=== PATIENT | female | born 1950 | race Caucasian/White ===

== ENCOUNTER 2018-10-15 07:57 | Observation (INO) ==
--- NOTE | 2018-10-15 08:24 | EKG Report ---
Test Performed on : 10/15/2018 08:06:52 AM Test Reason : ER Blood Pressure : / mmHG Vent. Rate : 082 BPM Atrial Rate : 082 BPM P-R Int : 134 ms QRS Dur : 096 ms QT Int : 368 ms P-R-T Axes : 030 002 024 degrees QTc Int : 429 ms Normal sinus rhythm. Septal infarct (cited on or before 11-MAR-2018) Cannot rule out Inferior infarct (cited on or before 11-MAR-2018) Abnormal ECG When compared with ECG of 11-MAR-2018 12:38, Nonspecific T wave abnormality now evident in Lateral leads Unconfirmed Result
--- NOTE | 2018-10-15 08:42 | PROVIDER DOCUMENTATION ---
HPI-Chest Pain - General Chief Complaint: Chest Pain Stated Complaint: CHEST PAINS Time Seen by Provider: 10/15/18 08:12 Source: patient Allergies/Adverse Reactions: Patient Allergies Allergy/AdvReac Type Severity Reaction Status Date / Time codeine Allergy NAUSEA Verified 10/15/18 08:14 Penicillins Allergy RASH Verified 10/15/18 08:14 Home Medications: Home Medication List Medication Instructions Recorded Confirmed Last Taken Type Aspirin 81 mg PO DAILY 02/04/14 03/12/18 03/11/18 09:00 History Lisinopril 10 mg PO DAILY 02/04/14 03/11/18 03/11/18 09:00 History Metformin [Glucophage] 1,000 mg PO BID CC 02/04/14 03/11/18 03/11/18 21:00 History Metoprolol Tartrate 25 mg PO BID 02/04/14 03/12/18 03/12/18 08:00 History Omeprazole 40 mg PO DAILY 02/04/14 03/11/18 03/11/18 09:00 History ATORVAstatin [Lipitor] 40 mg PO DAILY 02/28/17 03/11/18 03/11/18 09:00 History Biotin 1 cap PO DAILY 02/28/17 03/11/18 03/11/18 09:00 History Gabapentin 300 mg PO TID 02/28/17 03/11/18 03/11/18 21:00 History Trazodone [Desyrel] 50 mg PO DAILY 02/28/17 03/12/18 03/11/18 21:00 History Oxycodone HCl/Acetaminophen 1 ea PO Q6H PRN PRN #12 tab 02/01/18 03/12/18 03/12/18 08:00 Rx [Percocet 5-325 mg Tablet] Insulin Aspart Prot/Insuln Asp 40 units SUBQ BID 02/08/18 03/12/18 03/11/18 09:00 History [Novolog Mix 70-30 Flexpen Syrn] Doxepin [Sinequan] 50 mg PO DAILY 03/11/18 03/11/18 03/11/18 09:00 History Ibuprofen 800 mg PO PRN PRN 03/11/18 03/12/18 03/09/18 History Methocarbamol 500 mg PO TID 03/11/18 03/11/18 03/11/18 21:00 History Mv,Ca,Min/Iron Fum/FA/Lyco/Lut 1 each PO DAILY 03/11/18 03/11/18 03/11/18 09:00 History [Complete Multi Tablet] Ondansetron HCl [Zofran] 4 mg PO PRN PRN 03/11/18 03/12/18 2 Weeks Ago History ~02/26/18 - History of Present Illness-CP Nature of Presenting Problem: patient is 68 y/o female with history of HTN, DM, Hyperlipidemia presented with chest pain in mid chest and right sided chest pain, no other symptoms, patient said pain as discomfort. patient denied radiation, palpitation or shortness of breath. Location: reports: substernal Chest Pain Radiation: reports: no radiation Quality of Pain: reports: dull Severity in ED: moderate Onset/Duration: gradual Timing: still present, improving Context/Activities at Onset: reports: none Modifying Factors: improves with: nothing Associated Symptoms: denies: abdominal pain, diaphoresis, fatigue, fever/chills, headache, shortness of breath Nitro Today/Relief: no nitro taken today Aspirin Treatment Today: no aspirin today Prior Chest Pain/Cardiac Workup: reports: no prior cardiac workup Similar Symptoms Previously?: No Recently Seen Here or By Another Healthcare Provider: No Review of Systems - Adult - REVIEW OF SYSTEMS - ADULT Constitutional: reports: no symptoms reported. denies: fever, fatique Eyes: reports: no symptoms reported Ears, Nose, Mouth & Throat: reports: no symptoms reported Cardiovascular: reports: no symptoms reported Respiratory: reports: no symptoms reported Gastrointestinal: reports: no symptoms reported Genitourinary: reports: no symptoms reported. denies: dysuria, discharge Musculoskeletal: reports: no symptoms reported Integumentary: reports: no symptoms reported Neurological: reports: no symptoms reported Psychiatric: reports: no symptoms reported Endocrine: reports: no symptoms reported Hematologic/Lymphatic: reports: no symptoms reported Allergic/Immunologic: reports: no symptoms reported Past History - Adult - PAST MEDICAL HISTORY-ADULT Review of Records: reports: Nursing Assessment Review Major Childhood Illnesses: reports: denies history Cardiovascular: reports: HTN, hyperlipidemia Respiratory: reports: denies history Gastrointestinal: reports: GERD Obstetrical/Gynecological: reports: denies history Genitourinary: reports: denies history Musculoskeletal: reports: denies history Neurological: reports: TIA Endocrine/Immune: reports: Diabetes Other Conditions: reports: other cancer (Non-Hodgkin's Lymphoma) - PRIOR SURGERIES/PROCEDURES Surgical/Procedure History: reports: appendectomy, BTL, - PRIOR HOSPITALIZATIONS Prior Hospitalizations: reports: for other non-related - IMMUNIZATION STATUS Childhood Immunizations: See Nurse Assessment Flu Vaccine: See Nurse Assessment - FAMILY HISTORY Family History: reviewed, not pertinent Physical Exam-General - PHYSICAL EXAM-ADULT Initial Vital Signs Reviewed: Yes - CONSTITUTIONAL General Appearance: appears well, alert, no apparent distress - EYES Eyes: PERRL/EOMI - HEAD, EARS, NOSE, MOUTH & THROAT HENMT: normocephalic/atraumatic - NECK Neck: non-tender - RESPIRATORY Respiratory: chest non-tender - CARDIOVASCULAR Cardiovascular: normal peripheral pulses, regular rate, rhythm, no edema, no gallop - GASTROINTESTINAL (ABDOMEN) Abdominal Exam: normal bowel sounds, non tender, soft - LYMPHATIC Lymphatic: no adenopathy - MUSCULOSKELETAL Back Exam: normal inspection Extremity: normal range of motion, non-tender - SKIN Integumentary: normal color, normal turgor, warm/dry - NEUROLOGIC Neurologic: sales representative groceries II-XII nml as tested, grossly normal, no motor/sensory deficits - PSYCHIATRIC Psych/Mental Status: normal mood/affect - HEART Score HEART Score: History: Slightly Suspicious HEART Score: ECG: Non-Specific Repolarization Disturbance/LBBB/PM HEART Score: Age: > or = 65 Years HEART Score: Risk Factors for Atherosclerotic Disease: > or = 3 Risk Factors or History of Atherosclerotic Disease HEART Score: Troponin: < or = Normal Limit Total HEART Score:: 5 Progress - PLAN OF CARE/RESULTS Progress/Plan/Lab Results: Vital Signs - 8 hr 10/15/18 07:58 10/15/18 10:13 10/15/18 11:20 Temperature 97.9 F Pulse Rate 90 78 71 Respiratory Rate 20 16 12 Blood Pressure 181/081 196/75 196/75 O2 Sat by Pulse Oximetry 97 97 98 Laboratory Results - last 24 hr 10/15/18 10/15/18 10/15/18 08:30 08:30 08:30 WBC 12.06 H RBC 4.41 Hgb 13.1 Hct 37.4 MCV 84.8 MCH 29.7 MCHC 35.0 RDW Std Deviation 12.9 Plt Count 215 MPV 9.4 Immature Gran % (Auto) 0.2 Neut % (Auto) 73.2 Lymph % (Auto) 18.0 L [place] % (Auto) 6.2 Eos % (Auto) 1.8 Baso % (Auto) 0.6 Immature Gran # (Auto) 0.03 Neut # (Auto) 8.82 H Lymph # (Auto) 2.17 [place] # (Auto) 0.75 H Eos # (Auto) 0.22 Baso # (Auto) 0.07 PT INR PTT (Actin FS) D-Dimer, Quantitative Sodium 137 Potassium 3.9 Chloride 99 Carbon Dioxide 26 Anion Gap 12 BUN 13 Creatinine 0.6 Estimated GFR/1.73 m2 > 60 BUN/Creatinine Ratio 22 Glucose 340 H Calculated Osmolality 287 Calcium 8.8 Total Bilirubin 1.30 H AST 103 H ALT 51 H Alkaline Phosphatase 125 H Creatine Kinase 93 Troponin T Total Protein 6.5 Albumin 3.8 Globulin 3.0 Albumin/Globulin Ratio 1.0 10/15/18 10/15/18 10/15/18 08:30 08:30 08:30 WBC RBC Hgb Hct MCV MCH MCHC RDW Std Deviation Plt Count MPV Immature Gran % (Auto) Neut % (Auto) Lymph % (Auto) [place] % (Auto) Eos % (Auto) Baso % (Auto) Immature Gran # (Auto) Neut # (Auto) Lymph # (Auto) [place] # (Auto) Eos # (Auto) Baso # (Auto) PT 12.4 INR 0.88 PTT (Actin FS) 24.7 D-Dimer, Quantitative 0.65 H Sodium Potassium Chloride Carbon Dioxide Anion Gap BUN Creatinine Estimated GFR/1.73 m2 BUN/Creatinine Ratio Glucose Calculated Osmolality Calcium Total Bilirubin AST ALT Alkaline Phosphatase Creatine Kinase Troponin T < 0.010 Total Protein Albumin Globulin Albumin/Globulin Ratio Orders Category Date Time Status Cardiac Monitoring DIRECTED Care 10/15/18 08:15 Active Nursing- Obtain EKG ONCE Care 10/15/18 08:15 Active Saline Loc NOW Care 10/15/18 08:39 Active CTA [CT ANGIOGRAM THORAX] [CT] Stat Exams 10/15/18 09:49 Completed cxr [CHEST-2 VIEWS] [RAD] Stat Exams 10/15/18 08:49 Completed CBC WITH DIFF [HEME] Stat Lab 10/15/18 08:30 Completed CK PROFILE [SP CHEM] Stat Lab 10/15/18 08:30 Completed CMP [COMPREHENSIVE METABOLIC PANEL] [CHEM] Stat Lab 10/15/18 08:30 Completed D-DIMER [COAG] Stat Lab 10/15/18 08:30 Completed PROTIME WITH INR [COAG] Stat Lab 10/15/18 08:30 Completed PTT [COAG] Stat Lab 10/15/18 08:30 Completed TROPONIN T Stat Lab 10/15/18 08:30 Completed Aspirin Med 10/15/18 11:46 Discontinued 325 mg PO NOW ONE Labetalol Med 10/15/18 11:45 Discontinued 10 mg IV NOW ONE Nitroglycerin Med 10/15/18 11:46 Discontinued 1 inch TOP NOW ONE EKG [EKG] Routine Ther 10/15/18 Draft Result Diagrams: 10/15/18 08:30 10/15/18 08:30 - CONSULTS/PCP/HOSPITALIST Notification #1 *Consult/PCP/Hospitalist*: Dr Seals Time Discussed: 11:50 Consult Disposition: Will see in ED Departure - Departure Date of Disposition Decision: 10/15/18 Time of Disposition Decision: 11:48 DIAGNOSIS: Chest pain Disposition: ADMITTED INPATIENT 09 Certified Medical Emergency: Emergent Condition: Good Referrals and Follow-Ups: Cindi Kiran CRNP [Primary Care Provider] - - Critical Care Note This patient required my direct & personal management of CC.: No Attestation - Physician/ TANK Attestation Patient care was provided by Advanced Practice Provider:: No The physician spent face to face time with patient:: Yes Advanced Practice Provider documentation review:: Supervising physician onsite and consulted in the evaluation and care of this patient. The physician did have a face to face encounter with the patient.
[2018-10-15 09:10] LABS: BASO# 0.07 X1000 (0.0-0.2); BASO% 0.6 % (0.0-0.8); EOS# 0.22 X1000 (0.0-0.7); EOS% 1.8 % (0.0-10.0); HEMATOCRIT 37.4 % (37.0-47.0); HEMOGLOBIN 13.1 g/dL (12.0-16.0); IMM GRAN# 0.03 X1000 (0.0-0.04); IMM GRAN% 0.2 % (0.0-0.5); LYMPH# 2.17 X1000 (1.2-3.4); MCH 29.7 PG (27-31); MCV 84.8 FL (81-99); MONO# 0.75 X1000 (0.11-0.59); MONO% 6.2 % (1.7-9.3); MPV 9.4 FL (7.4-10.4); NEUT# 8.82 X1000 (1.4-6.5); NEUT% 73.2 % (42.2-75.2); PLT 215 X1000 (130-400); RBC 4.41 XMIL (4.2-5.4); RDW 12.9 % (11.5-14.5); WBC 12.06 X1000 (4.8-10.8)
[2018-10-15 09:21] LABS: AGAP 12; ALBUMIN 3.8 g/dL (3.5-5.0); ALKALINE PHOSPHATASE 125 U/L (32-104); BUN 13 mg/dL (8-22); CALCIUM 8.8 mg/dL (8.8-10.2); CHLORIDE 99 mmol/L (98-107); COSMO 287; CREATININE 0.6 mg/dL (0.5-0.9); ESTIMATED GFR > 60; GLUCOSE 340 mg/dL (70-104); GOT 103 U/L (10-30); GPT 51 U/L (10-36); POTASSIUM 3.9 mmol/L (3.5-5.1); SODIUM 137 mmol/L (136-145); TCO2 26 mmol/L (25-35); TOTAL PROTEIN 6.5 g/dL (6.3-8.3)
[2018-10-15 09:23] LABS: INR 0.88; PROTIME 12.4 Seconds (11.0-16.0)
[2018-10-15 09:24] LABS: PTT 24.7 Seconds (22.3-41.8)
--- NOTE | 2018-10-15 09:55 | Diag Imaging Result Doc PS360 ---
EXAM: CHEST-2 VIEWS - 10/15/2018 HISTORY: cp TECHNIQUE: Chest two views COMPARISON: 02/14/2018 portable chest FINDINGS: Heart size appears upper normal. There is some tortuosity of the thoracic aorta similar to prior. Inspiration is mildly shallow. There is mild linear atelectasis at the lateral left lower lung. The lungs otherwise appear clear. There is no pleural effusion or pneumothorax identified. There is thoracic spondylosis noted. IMPRESSION: Mildly shallow inspiration, with mild left lower lung linear atelectasis. No other evidence of acute disease. Electronically signed by Clinton Dunham 10/15/2018 9:53 AM
--- NOTE | 2018-10-15 11:00 | Diag Imaging Result Doc PS360 ---
EXAM: CT ANGIOGRAM THORAX - 10/15/2018 HISTORY: chest pain, elevated dimer TECHNIQUE: CT angiogram thorax with intravenous contrast. Axial, coronal, and 3-D MIP images are obtained. COMPARISON: None. FINDINGS: There is no evidence of thoracic aortic aneurysm. There is no evidence of thoracic aortic dissection. The pulmonary arteries are relatively well opacified. There are no filling defects identified in the pulmonary arteries. The lungs appear essentially clear. There is no consolidation, pleural effusion, or pneumothorax identified. IMPRESSION: No evidence of thoracic aortic dissection. No indication of pulmonary embolism. No evidence of pneumonia. No pneumothorax. Electronically signed by Clinton Dunham 10/15/2018 10:57 AM
[2018-10-15] MEDS ORDERED: LABETALOL IV ONE (11:45)
[2018-10-15] MEDS ORDERED: ASPIRIN PO ONE (11:46)
[2018-10-15] MEDS ORDERED: NITROGLYCERIN TOP ONE (11:46)
--- NOTE | 2018-10-15 11:48 | ED EKG INTERP ---
This chart was entered by Silvia Dahl Scribe, acting as scribe for Betty Otoole MD. EKG Interpretation - EKG Time of EKG reading by physician:: 08:06 EKG Read and Signed by:: Betty Otoole EKG Interpretation (*Must complete 3 of following elements*): Abnormal (cannot rule out inferior infarct, age undetermined) Rate: 82 Rhythm: normal sinus rhythm MD Interval: normal Comments: septal infarct, age undetermined Attestation - Physician/ TANK Attestation The physician spent face to face time with patient:: Yes Advanced Practice Provider documentation review:: Supervising physician onsite and consulted in the evaluation and care of this patient. The physician did have a face to face encounter with the patient. This chart was documented by the indicated scribe, (Silvia Dahl Scribe) and accurately reflects the services I performed and decisions made by me, Betty Otoole MD, as attested by the provider's signature.
[2018-10-15] MEDS ORDERED: ZOFRAN IV ONE (12:03)
[2018-10-15] MEDS ORDERED: LABETALOL IV PRN (12:49)
[2018-10-15] MEDS ORDERED: TYLENOL PO PRN (12:49)
[2018-10-15] MEDS ORDERED: FLU VACCINE IM ONE (13:59)
[2018-10-15] MEDS ORDERED: PNEUMOVAX 23 IM ONE (13:59)
[2018-10-15 15:01] LABS: HEMOGLOBIN A1C 9.2 % (4.8-6.0)
--- NOTE | 2018-10-15 15:08 | HISTORY AND PHYSICAL ---
PRIMARY CARE PHYSICIAN: Cindi Kiran. CHIEF COMPLAINT: Chest pain. HISTORY OF PRESENTING ILLNESS: This is a 68-year-old, female who presented to [facility] ER with complaints of chest pain. States that she ate ninja [place]ian food last night for supper, went to bed. At around 7 p.m., woke up with a charley horse in her right calf that moved up her right side into her chest that felt like pressure. Stated, "I felt like my chest was going to explode." States that the pain is a 5/10 on the pain scale. Nothing makes the pain worse and nothing makes the pain better. It has not improved since she arrived to the emergency room. It is staying constant and does not radiate anywhere. She states that she just feels "tight and full". She is also noted to have some tenderness to palpation to her right upper quadrant. Her workup in the emergency room showed a blood pressure of 181/81. Her white blood cell count was 12.06. She did have a mild elevation in her D- dimer at 0.65. Chest and thorax CTA showed no indication of a pulmonary embolism. No evidence of a thoracic aortic dissection. She did have some elevation in her LFTs with a total bilirubin of 1.30, AST 103, ALT 51, alkaline phosphatase 125. She had a negative cardiac enzyme on her first set. She is being admitted for further evaluation and treatment. PAST MEDICAL HISTORY: Hypertension, diabetes type 2, hyperlipidemia, neuropathy, and GERD. PAST SURGICAL HISTORY: Appendectomy, bilateral tubal ligation, a section, and a skin graft to her foot. FAMILY HISTORY: Diabetes and osteoarthritis in her father. Her father and mother had heart disease and hypertension. SOCIAL HISTORY: She currently lives with family. Denies any tobacco, alcohol, or illicit drug use. ALLERGIES: To codeine and penicillin. HOME MEDICATIONS: She takes Lipitor 40 mg p.o. at bedtime, doxepin 50 mg p.o. at bedtime, gabapentin 300 mg p.o. t.i.d., ibuprofen 800 mg p.o. b.i.d., lisinopril 10 mg p.o. daily, metformin 500 mg p.o. b.i.d. will be held, metoprolol 12.5 mg p.o. b.i.d., omeprazole 40 mg p.o. daily, trazodone 50 mg 1/2 tablet p.o. at bedtime, aspirin 81 mg p.o. daily, biotin 5000 mcg sublingually daily, Novolin 70/30 with 20 units subcutaneous b.i.d., methocarbamol 500 mg 2 tablets daily and 1 tablet at bedtime. LABORATORY DATA: Showed a white blood cell count of 12.06, hemoglobin 13.1, hematocrit 37.4, platelets 215,000. PT and INR of 12.4 and 0.88. D-dimer of 0.65. Sodium 137, potassium 3.9, chloride 99, CO2 26, BUN of 13, creatinine 0.6, glucose 340. Total bilirubin 1.30, AST 103, ALT 51, alkaline phosphatase 125. Cardiac enzymes x1 set was negative. An EKG showed normal sinus rhythm at 82 with a nonspecific T-wave abnormality in lateral leads. Chest x- ray, mildly shallow inspiration with mild left lung lower linear atelectasis. No other evidence of acute disease. Chest and thorax CTA showed no evidence of thoracic aortic dissection. No indication of pulmonary embolism. No evidence of pneumonia and no pneumothorax. REVIEW OF SYSTEMS: She denied any fever, chills, blurred vision, dizziness. She is positive for chest pain, right upper quadrant tenderness. Denied any nausea, vomiting, constipation, diarrhea, burning or hurting with urination. PHYSICAL EXAMINATION: VITAL SIGNS: On arrival, she had a temperature of 97.9 degrees, pulse 90, respirations 20, blood pressure 181/81, saturating 97% on room air. GENERAL: This is a 68-year-old, female who is sitting on the side of the bed and answers questions appropriately. HEENT: Normocephalic, atraumatic. Normal ENT inspection. Oropharynx and nares are clear. Eyes: Pupils are equal, round, and reactive to light and accommodation. Extraocular movements are intact. NECK: Normal inspection. Normal range of motion. LUNGS: Clear to auscultation bilaterally with equal lung expansion and chest wall movement. HEART: With regular rate and rhythm. No murmurs, rubs, or gallops. ABDOMEN: Soft. There is some tenderness to palpation to the right upper quadrant. Bowel sounds are present x4 quadrants. MUSCULOSKELETAL: She has 5/5 strength x4 extremities. NEUROLOGICAL: The cranial nerves 2-12 appear grossly intact. ASSESSMENT: 1. Chest pain. 2. Elevated liver function tests. 3. Hypertension. 4. Diabetes type 2 with hyperglycemia, uncontrolled. 5. Elevated D-dimer. PLAN: She has been admitted to the medical unit. Placed on O2 per protocol, telemetry, diabetic diet. We will check a bilateral lower extremity venous Doppler. We are going to check a hemoglobin A1c, a urinalysis, and serial cardiac enzymes x3 sets. An ultrasound of the abdomen complete has been ordered. We will do a myocardial perfusion test in the a.m. and be n.p.o. after midnight. Continue home medications as previously identified. Give labetalol 20 mg IV q.4 hours p.r.n. for a systolic blood pressure greater than 180 and diastolic greater than 100, morphine 2 mg IV q.2 hours p.r.n. pain, Zofran 4 mg IV q.4 hours p.r.n. Further orders after seen by attending. Dictated by BESSIE Zimmerman for Kostas Seals MD cc: BESSIE Zimmerman MD Amanda K. Anderson, CRNP Pt examined, pt has risk factors for heart disease, dm2, htn, xol, and uses daily aspirin, TIMI3 score is around # and HEART score of 5; plan to observe start stress test and follow, exam is benign, seen in conjunction with BESSIE HERNANDEZ
[2018-10-15] MEDS ORDERED: KLONOPIN PO PRN (16:24)
[2018-10-15] MEDS ORDERED: NEURONTIN PO SCH (17:00)
--- NOTE | 2018-10-15 17:37 | Extremity Venous Study ---
EXAM: Venous U/S Bilateral Legs INDICATION: elevated ddimer TECHNIQUE: COMPARISON: None. FINDINGS: There are no filling defects and there is normal Doppler flow, compressibility, and augmentation involving the deep venous systems of the right and left lower extremities. Both great saphenous veins also appear to be patent. IMPRESSION: No sonographic evidence of deep venous thrombosis. Electronically signed by Guanako Rausch 10/15/2018 5:35 PM
[2018-10-15] MEDS: NEURONTIN PO SCH (20:22)
[2018-10-15] MEDS: LOPRESSOR PO SCH (20:23)
[2018-10-15] MEDS: MOTRIN PO SCH (20:24)
[2018-10-15] MEDS ORDERED: DESYREL PO SCH (21:00)
[2018-10-15] MEDS ORDERED: ROBAXIN PO SCH (21:00)
[2018-10-15] MEDS ORDERED: LIPITOR PO SCH (21:00)
[2018-10-15] MEDS ORDERED: SINEQUAN PO SCH (21:00)
[2018-10-15] MEDS: HUMULIN 70/30 (PARKWAY) SUBQ SCH (21:50)
[2018-10-15 22:22] LABS: BILIRUBIN URINE NEGATIVE (NEGATIVE); BLOOD URINE TRACE (NEGATIVE); CLARITY CLEAR (CLEAR); COLOR YELLOW; KETONE URINE NEGATIVE (NEGATIVE); LEUKOCYTES URINE TRACE (NEGATIVE); NITRITE URINE NEGATIVE (NEGATIVE); PH URINE 6.5; PROTEIN URINE TRACE mg/dL (NEGATIVE); UROBILINOGEN URINE NORMAL
[2018-10-15 22:25] LABS: URINE SOURCE CLEAN CATCH
[2018-10-15 22:27] LABS: URINE BACTERIA NEGATIVE /HFP; URINE CRYSTAL CA OXALATE PRESENT /HPF; URINE EPITHELIAL CELLS >10 /HPF (<10); URINE RBC <10 /HPF (<10); URINE YEAST NONE SEEN /HPF
[2018-10-15] MEDS: MORPHINE IV PRN (23:44)
[2018-10-15] MEDS: ZOFRAN IV PRN (23:44)
[2018-10-16] MEDS ORDERED: PRILOSEC PO SCH (07:00)
[2018-10-16] MEDS: MORPHINE IV PRN (09:15)
[2018-10-16] MEDS: ZOFRAN IV PRN ×2 (09:16→11:57)
--- NOTE | 2018-10-16 09:21 | EKG Report ---
Test Performed on : 10/16/2018 05:23:45 AM Test Reason : CP Blood Pressure : / mmHG Vent. Rate : 073 BPM Atrial Rate : 073 BPM P-R Int : 148 ms QRS Dur : 086 ms QT Int : 388 ms P-R-T Axes : 028 006 039 degrees QTc Int : 427 ms Normal sinus rhythm. Septal infarct (cited on or before 11-MAR-2018) Abnormal ECG When compared with ECG of 15-OCT-2018 08:06, (Unconfirmed) Minimal criteria for Inferior infarct are no longer present Unconfirmed Result
[2018-10-16] MEDS ORDERED: AMINOPHYLLINE ONE (10:00)
[2018-10-16] MEDS ORDERED: LEXISCAN ONE (10:00)
[2018-10-16] MEDS: ASPIRIN EC PO SCH ×2 (10:08→13:19)
[2018-10-16] MEDS: PRINIVIL PO SCH ×2 (10:08→13:18)
[2018-10-16] MEDS: BIOTIN PO SCH ×2 (10:09→13:49)
[2018-10-16] MEDS: NEURONTIN PO SCH ×2 (10:09→13:20)
[2018-10-16] MEDS: HUMULIN 70/30 (PARKWAY) SUBQ SCH ×2 (10:09→13:16)
[2018-10-16] MEDS: ROBAXIN PO SCH ×2 (10:09→13:20)
[2018-10-16] MEDS: MOTRIN PO SCH ×2 (10:09→13:18)
[2018-10-16] MEDS: LOPRESSOR PO SCH ×2 (10:09→13:18)
--- NOTE | 2018-10-16 10:17 | Diag Imaging Result Doc PS360 ---
US ABDOMEN-COMPLETE - 10/16/2018 INDICATION: Elevated LFT, CP COMPARISON: None FINDINGS: The liver is extremely fatty. No liver masses. There are numerous small granular shadowing stones in the gallbladder. No gallbladder distention or inflammation. Common bile duct measures 6 mm. The pancreas, spleen, and both kidneys are normal. Spleen size is 10.4 x 10.3 x 4.6 cm. Aorta, IVC, and main portal vein are patent. IMPRESSION: Fatty liver. Numerous small granular gallstones in the gallbladder. Electronically signed by Aquilino Gray 10/16/2018 10:14 AM
--- NOTE | 2018-10-16 11:48 | GRADED EXERCISE REPORT ---
DATE: 10/16/2018 Ordered by BESSIE Zimmerman. Heart rate 81, blood pressure 177/96, at baseline. She has some T-wave inversion in 3 and AVF but really otherwise nonspecific. Lexiscan administered, 0.4 mg. She developed kind of just intense discomfort, headaches, nausea, just did not feel well. It persisted for several minutes. She has had the test done before, although I think apparently it was worse before. This time, it is a little better. No charles chest pain. No clear ST changes. Her peak blood pressure was 187/97, peak heart rate of 114. The test was felt to be clinically negative and electrically negative. Myocardial perfusion reported separately. cc: Kostas Seals MD
--- NOTE | 2018-10-16 15:22 | Diag Imaging Result Document ---
PROCEDURE NAME: MYOCARDIAL PERF SCAN, STR/REST - 10/16/2018 INDICATION FOR THE PROCEDURE: Chest pain. PROCEDURES PERFORMED: 1. Lexiscan stress. 2. One-day stress/rest myocardial perfusion imaging. PROCEDURE IN DETAIL: Ms. Villa was brought to the nuclear laboratory and had a resting study with injection of 13.6 mCi of technetium-99m sestamibi with the usual imaging protocol utilized. Subsequently she was brought back and had a Lexiscan stress, and at peak stress, was injected with 38.5 mCi of technetium-99m sestamibi with the usual imaging protocol utilized. FINDINGS: 1. Lexiscan stress results dictated separately by Dr. Seals. 2. No evidence of abnormal extracardiac uptake. 3. TID ratio 0.94. 4. Perfusion imaging demonstrates normal homogenous uptake of radiotracer throughout the myocardial segments. No evidence of ischemic defects. 5. Normal ejection fraction of 66%. End-diastolic volume 81. End systolic volume 27. Normal wall motion. cc: MD Laura Gaitan CRNP
--- NOTE | 2018-10-16 15:31 | PROGRESS NOTE ---
DATE: 10/16/2018 SUBJECTIVE: She is doing well, no more pains. OBJECTIVE: Vital Signs: Blood pressure is 137/49, heart rate 71, respiratory rate 16, temperature 97.9, satting 97% on room air. Cardiovascular: Regular rate and rhythm. Pulmonary: Bilateral breath sounds. Clear to auscultation. GI: Soft, nontender, nondistended. Bowel sounds are positive. LABORATORY DATA: Her cardiac enzymes are negative. Her sugars are not well controlled; they were in the 300s, but they may have held some of her home medicines. Her physical exam is really unremarkable, except for there are no murmurs, gallops, or rubs. Lungs are clear. PROBLEM: 1. Chest pain is atypical. Not really clear what the source is. Her cardiac workup is negative. She does have an elevated heart score, so she has had myocardial perfusion imaging that is pending. Electrocardiogram portion was unremarkable. She was symptomatic, but she tends to get very symptomatic when she gets stress tests per her description. 2. Diabetes is not completely controlled. She is on insulin, which she is on a weird kind of sliding scale. I think we are going to put her on scheduled insulin because she is not controlled. 3. Hypertension appears to be stable. Continue regular medications and follow disposition. If her workup is negative, anticipate discharge home soon, hopefully in the next 12-24 hours. cc: Kostas Seals MD
[2018-10-16 15:50] VITALS: BP 139/94
[2018-10-16] MEDS ORDERED: HUMULIN 70/30 (PARKWAY) SUBQ SCH (21:00)
--- NOTE | 2018-10-16 22:29 | DISCHARGE SUMMARY ---
ADMISSION DATE: 10/15/2018 DISCHARGE DATE: 10/16/2018 PRIMARY CARE PHYSICIAN: BESSIE Iqbal ADMISSION DIAGNOSES: 1. Chest pain. 2. Elevated liver function tests. 3. Hypertension. 4. Diabetes type 2 with hyperglycemia, uncontrolled. 5. Elevated D-dimer. DISCHARGE DIAGNOSES: 1. Chest pain, atypical, ruled out by myocardial perfusion scan. 2. Diabetes, uncontrolled. 3. Cholelithiasis. SUMMARY OF FINDINGS: This is a 68-year-old female who presented to the emergency room with complaints of chest pain stating that she had ate [employer] food for supper the night before and then woke up with a charley horse in her right calf that moved up into her chest that felt like pressure, stated "I felt like my chest was going to explode", but rated it a 5/10 on a pain scale, stated nothing made it worse or better, and it had not improved since she arrived at the emergency room. She did have a mild elevation in her D-dimer at 0.65. We did a chest and thorax CTA that showed no indication of a pulmonary embolism. We also did a bilateral lower extremity venous Doppler that showed no sonographic evidence of a DVT. We did a myocardial perfusion scan that was read as normal. We did do an abdomen ultrasound that showed a fatty liver and numerous small granular gallstones in the gallbladder. She does not have any right upper quadrant tenderness today so it is felt that we can safely discharge her home, and she will follow up outpatient with Dr. Arvizu, General Surgery, to discuss her options about the gallstones in her gallbladder. DISCHARGE MEDICATIONS: Aspirin 81 mg p.o. daily, atorvastatin 40 mg p.o. at bedtime, biotin 5000 mcg sublingually daily, doxepin 50 mg p.o. at bedtime, gabapentin 300 mg p.o. t.i.d., Novolin 70/30 twenty units subcutaneous b.i.d., lisinopril 10 mg p.o. daily, methocarbamol 500 mg 2 tablets p.o. daily and 500 mg p.o. at bedtime, metoprolol 12.5 mg p.o. b.i.d., omeprazole 40 mg p.o. daily, trazodone 50 mg 1/2 tablet at bedtime, ibuprofen 800 mg p.o. b.i.d., and metformin 500 mg p.o. b.i.d. FOLLOWUP: She will need to follow up with her primary care physician in 1 to 2 weeks and call the office for an appointment. Again, she will also follow up with Dr. Arvizu, General Surgery, for her gallbladder issues. All discharge instructions have been reviewed with the patient and she verbalizes understanding. TIME SPENT ON DISCHARGE: 35 minutes. Dictated by BESSIE Zimmerman for Kostas Seals MD cc: BESSIE Zimmerman MD
== END 2018-10-16 16:15 | disposition home or self-care (01) ==
LOC: P.ED 07:57 → P.MEDSURG 07:57
PROVIDERS: ATTEND Internal Medicine
CPT/HCPCS: 71020; 71046; 71275; 76700; 78452; 80053; 81001; 82550; 82948; 83036; 84484; 85025; 85379; 85610; 85730; 87088; 93005; 93017; 93970; 94761; 96374; 96375; 96376; 99285; A9270; A9500; G0378; J0280; J0820; J1815; J2270; J2405; J2785; Q9967; XXXXX

== ENCOUNTER 2019-10-05 09:15 | Inpatient (IN) ==
[2019-10-05] MEDS ORDERED: NS 1,000 ML IV ONE (10:02)
[2019-10-05 10:04] LABS: INFLUENZA A NEGATIVE (NEGATIVE); INFLUENZA B NEGATIVE (NEGATIVE)
--- NOTE | 2019-10-05 10:08 | PROVIDER DOCUMENTATION ---
This chart was entered by Adriana Fields Scribe, acting as scribe for Lamine Roberson CRNP. HPI-General Adult - General Source: patient - History of Present Illness -Gen Adult Nature of Presenting Problems: 69 y/o female presents to the ED with flu-like symptoms. The patient states she was seen by PCP Sunday with negative flu and chest x-ray and was given antibiotic and cough medicine. The patient is shaking and tearful and complains of yellow diarrhea, bodyaches, and states she feels as though she is dehydrated. Location of Pain/Injury: reports: generalized Onset/Duration: reports: unsure Timing: reports: still present Associated Symptoms: reports: diarrhea, other (bodyache). denies: fever/chills, vomiting Similar Symptoms Previously?: Yes Recently seen or treated by another doctor?: Yes (PCP Sunday ) <Lamine Roberson - Last Filed: 10/05/19 13:29> <Balwinder Moyer - Last Filed: 10/05/19 13:39> - General Chief Complaint: Flu Symptoms Stated Complaint: GENERAL ADULT Time Seen by Provider: 10/05/19 09:42 Allergies/Adverse Reactions: Patient Allergies Allergy/AdvReac Type Severity Reaction Status Date / Time codeine Allergy NAUSEA Verified 10/15/18 08:14 Penicillins Allergy RASH Verified 10/15/18 08:14 Home Medications: Home Medication List Medication Instructions Recorded Confirmed Last Taken Type Lisinopril 10 mg PO DAILY 02/04/14 10/15/18 03/11/18 09:00 History Metformin [Glucophage] 500 mg PO BID 02/04/14 10/15/18 03/11/18 21:00 History Metoprolol Tartrate 12.5 mg PO BID 02/04/14 10/15/18 03/12/18 08:00 History Omeprazole 40 mg PO DAILY 02/04/14 10/15/18 03/11/18 09:00 History ATORVAstatin [Lipitor] 40 mg PO HS 02/28/17 10/15/18 03/11/18 09:00 History Gabapentin 300 mg PO TID 02/28/17 10/15/18 03/11/18 21:00 History Trazodone [Desyrel] 0.5 tab PO 02/28/17 10/15/18 03/11/18 21:00 History Doxepin [Sinequan] 50 mg PO HS 03/11/18 10/15/18 03/11/18 09:00 History Ibuprofen 800 mg PO BID 03/11/18 10/15/18 03/09/18 History Aspirin [Lo-Dose Aspirin EC] 81 mg PO DAILY 10/15/18 10/15/18 Unknown History Biotin 5,000 mcg SUBLINGUAL DAILY 10/15/18 10/15/18 Unknown History Hum Insulin NPH/Reg Insulin Hm 20 unit SQ BID 10/15/18 10/15/18 Unknown History [Novolin 70-30 100 Unit/ml Vial] Methocarbamol 2 tab PO DAILY 10/15/18 10/15/18 Unknown History Methocarbamol 500 mg PO HS 10/15/18 10/15/18 Unknown History Dicyclomine [Bentyl] 10 mg PO AC + HS #20 cap 11/08/18 Unknown Rx Ondansetron Odt [Zofran 4 mg Odt] 4 mg PO Q6H PRN PRN #12 tab 11/08/18 Unknown Rx Cephalexin [Keflex] 500 mg PO BID #14 cap 03/17/19 Unknown Rx Review of Systems - Adult - REVIEW OF SYSTEMS - ADULT Constitutional: reports: other (generalized bodyache). denies: chills, fever, weight loss Eyes: reports: no symptoms reported Ears, Nose, Mouth & Throat: reports: no symptoms reported Cardiovascular: reports: no symptoms reported Respiratory: denies: hemoptysis, pleurisy, wheezing Gastrointestinal: reports: diarrhea. denies: nausea, vomiting Genitourinary: reports: no symptoms reported Musculoskeletal: reports: no symptoms reported Integumentary: reports: no symptoms reported Neurological: reports: no symptoms reported Psychiatric: reports: no symptoms reported Endocrine: reports: no symptoms reported Hematologic/Lymphatic: reports: no symptoms reported Allergic/Immunologic: reports: no symptoms reported All Other Systems: Reviewed and Negative <Lamine Roberson - Last Filed: 10/05/19 13:29> Past History - Adult - PAST MEDICAL HISTORY-ADULT Review of Records: reports: Old Records Reviewed, Nursing Assessment Review, Med ications Reviewed Major Childhood Illnesses: reports: denies history Cardiovascular: reports: HTN, hyperlipidemia Respiratory: reports: denies history Gastrointestinal: reports: GERD Obstetrical/Gynecological: reports: denies history Genitourinary: reports: denies history Musculoskeletal: reports: denies history Neurological: reports: TIA Endocrine/Immune: reports: Diabetes Other Conditions: reports: other cancer (Non-Hodgkin's Lymphoma) - PRIOR SURGERIES/PROCEDURES Surgical/Procedure History: reports: appendectomy, BTL, - PRIOR HOSPITALIZATIONS Prior Hospitalizations: reports: for other non-related - IMMUNIZATION STATUS Childhood Immunizations: See Nurse Assessment Flu Vaccine: See Nurse Assessment - FAMILY HISTORY Family History: reviewed, not pertinent - SOCIAL HISTORY Smoking: non-smoker <DaLamine Zia - Last Filed: 10/05/19 13:29> Physical Exam-General - PHYSICAL EXAM-ADULT Initial Vital Signs Reviewed: Yes - CONSTITUTIONAL General Appearance: alert, obese, other (shaking, tearful) - EYES Eyes: PERRL/EOMI - HEAD, EARS, NOSE, MOUTH & THROAT HENMT: normocephalic/atraumatic, TMs normal, pharynx normal - NECK Neck: full range of motion, supple - RESPIRATORY Respiratory: lungs clear, normal breath sounds. negative: rales, rhonchi, wheezing - CARDIOVASCULAR Cardiovascular: regular rate, rhythm, no gallop, no murmur - GASTROINTESTINAL (ABDOMEN) Abdominal Exam: non tender, soft. negative: guarding, rigid, rebound - MUSCULOSKELETAL Extremity: normal gait - SKIN Integumentary: normal color, warm/dry. negative: warm - NEUROLOGIC Neurologic: grossly normal - PSYCHIATRIC Psych/Mental Status: oriented x 3 <Lamine Roberson Zia - Last Filed: 10/05/19 13:29> Progress - PLAN OF CARE/RESULTS Progress/Plan/Lab Results: Vital Signs - 8 hr 10/05/19 09:30 Temperature 98.7 F Pulse Rate 104 H Respiratory Rate 20 Blood Pressure 141/112 O2 Sat by Pulse Oximetry 100 Laboratory Results - last 24 hr 10/05/19 09:43 Group A Strep Rapid NEGATIVE Orders Category Date Time Status Saline Loc NOW Care 10/05/19 09:54 Active FLAT/UPRIGHT ABD/1 VIEW CHEST [RAD] Stat Exams 10/05/19 09:55 Ordered CBC WITH ELECTRONIC DIFF [HEME] Stat Lab 10/05/19 09:55 Uncollected CK PROFILE [SP CHEM] Stat Lab 10/05/19 09:55 Uncollected COMPREHENSIVE METABOLIC PANEL [CHEM] Stat Lab 03/01/20 09:[address] Stat Lab 10/05/19 09:[address] Stat Lab 10/05/19 09:43 Ordered PRO B-NATRIURETIC PEPTIDE Stat Lab 10/05/19 09:55 Ordered TROPONIN T HIGH SENSITIVITY Stat Lab 10/05/19 09:55 Uncollected TSH Stat Lab 10/05/19 09:55 Uncollected URINALYSIS W/POSS RFLX CULT [URINALYSIS] Stat Lab 10/05/19 09:55 Uncollected EKG [EKG] Stat Ther 10/05/19 09:54 Ordered 1002: Strep negative. Laboratory Tests 10/05/19 10/05/19 10/05/19 09:43 09:43 10:07 WBC RBC Hgb Hct MCV MCH MCHC RDW Std Deviation Plt Count MPV Immature Gran % (Auto) Neut % (Auto) Lymph % (Auto) Travis % (Auto) Eos % (Auto) Baso % (Auto) Immature Gran # (Auto) Neut # (Auto) Lymph # (Auto) Travis # (Auto) Eos # (Auto) Baso # (Auto) Sodium Potassium Chloride Carbon Dioxide Anion Gap BUN Creatinine Estimated GFR/1.73 m2 BUN/Creatinine Ratio Glucose Calculated Osmolality Calcium Total Bilirubin AST ALT Alkaline Phosphatase Creatine Kinase Creatine Kinase Index CK-MB (CK-2) Troponin T High Sens Bme-C-Pgzojvpzilz Pept 65 Total Protein Albumin Globulin Albumin/Globulin Ratio Lipase TSH Urine Source Urine Color Urine Turbidity Urine pH Ur Specific [place] Urine Protein Ur Glucose (Stick) Ur Ketones (Stick) Urine Blood Urine Nitrite Urine Bilirubin Urobilinogen Dipstick Urine Leukocytes Urine WBC (Auto) Urine RBC (Auto) U Epithel Cells (Auto) Urine Bacteria (Auto) Acetone Level Influenza A (Rapid) NEGATIVE Influenza B (Rapid) NEGATIVE Group A Strep Rapid NEGATIVE 10/05/19 10/05/19 10/05/19 10:07 10:07 10:07 WBC RBC Hgb Hct MCV MCH MCHC RDW Std Deviation Plt Count MPV Immature Gran % (Auto) Neut % (Auto) Lymph % (Auto) Travis % (Auto) Eos % (Auto) Baso % (Auto) Immature Gran # (Auto) Neut # (Auto) Lymph # (Auto) Travis # (Auto) Eos # (Auto) Baso # (Auto) Sodium 141 Potassium 3.8 Chloride 98 Carbon Dioxide 24 L Anion Gap 19 BUN 22 Creatinine 0.9 Estimated GFR/1.73 m2 > 60 BUN/Creatinine Ratio 24 Glucose 307 H Calculated Osmolality 296 Calcium 10.8 H Total Bilirubin 0.60 AST 31 H ALT 32 Alkaline Phosphatase 123 H Creatine Kinase 343 H Creatine Kinase Index 1.4 CK-MB (CK-2) 4.91 Troponin T High Sens 13 Oqh-X-Ixdetsfxtri Pept Total Protein 8.0 Albumin 4.6 Globulin 3.0 Albumin/Globulin Ratio 1.0 Lipase TSH 0.88 Urine Source Urine Color Urine Turbidity Urine pH Ur Specific [place] Urine Protein Ur Glucose (Stick) Ur Ketones (Stick) Urine Blood Urine Nitrite Urine Bilirubin Urobilinogen Dipstick Urine Leukocytes Urine WBC (Auto) Urine RBC (Auto) U Epithel Cells (Auto) Urine Bacteria (Auto) Acetone Level Influenza A (Rapid) Influenza B (Rapid) Group A Strep Rapid 10/05/19 10/05/19 10/05/19 10:07 10:07 10:12 WBC 12.73 H RBC 5.31 Hgb 15.1 Hct 46.1 MCV 86.8 MCH 28.4 MCHC 32.8 L RDW Std Deviation 13.5 Plt Count 299 MPV 9.1 Immature Gran % (Auto) 0.2 Neut % (Auto) 63.9 Lymph % (Auto) 26.6 Travis % (Auto) 7.4 Eos % (Auto) 1.4 Baso % (Auto) 0.5 Immature Gran # (Auto) 0.03 Neut # (Auto) 8.13 H Lymph # (Auto) 3.38 Travis # (Auto) 0.94 H Eos # (Auto) 0.18 Baso # (Auto) 0.07 Sodium Potassium Chloride Carbon Dioxide Anion Gap BUN Creatinine Estimated GFR/1.73 m2 BUN/Creatinine Ratio Glucose Calculated Osmolality Calcium Total Bilirubin AST ALT Alkaline Phosphatase Creatine Kinase Creatine Kinase Index CK-MB (CK-2) Troponin T High Sens Dic-J-Uvtaujghuuq Pept Total Protein Albumin Globulin Albumin/Globulin Ratio Lipase 38 TSH Urine Source Urine Color Urine Turbidity Urine pH Ur Specific [place] Urine Protein Ur Glucose (Stick) Ur Ketones (Stick) Urine Blood Urine Nitrite Urine Bilirubin Urobilinogen Dipstick Urine Leukocytes Urine WBC (Auto) Urine RBC (Auto) U Epithel Cells (Auto) Urine Bacteria (Auto) Acetone Level NEGATIVE Influenza A (Rapid) Influenza B (Rapid) Group A Strep Rapid 03/01/20 11:45 WBC RBC Hgb Hct MCV MCH MCHC RDW Std Deviation Plt Count MPV Immature Gran % (Auto) Neut % (Auto) Lymph % (Auto) Travis % (Auto) Eos % (Auto) Baso % (Auto) Immature Gran # (Auto) Neut # (Auto) Lymph # (Auto) Travis # (Auto) Eos # (Auto) Baso # (Auto) Sodium Potassium Chloride Carbon Dioxide Anion Gap BUN Creatinine Estimated GFR/1.73 m2 BUN/Creatinine Ratio Glucose Calculated Osmolality Calcium Total Bilirubin AST ALT Alkaline Phosphatase Creatine Kinase Creatine Kinase Index CK-MB (CK-2) Troponin T High Sens Pnw-B-Beuoaidagaq Pept Total Protein Albumin Globulin Albumin/Globulin Ratio Lipase TSH Urine Source CLEAN CATCH Urine Color YELLOW Urine Turbidity CLEAR Urine pH 6.5 Ur Specific [place] 1.020 Urine Protein TRACE A Ur Glucose (Stick) 100 A Ur Ketones (Stick) NEGATIVE Urine Blood NEGATIVE Urine Nitrite NEGATIVE Urine Bilirubin NEGATIVE Urobilinogen Dipstick NORMAL Urine Leukocytes TRACE A Urine WBC (Auto) <10 Urine RBC (Auto) <10 U Epithel Cells (Auto) <10 Urine Bacteria (Auto) NEGATIVE Acetone Level Influenza A (Rapid) Influenza B (Rapid) Group A Strep Rapid Discussed results and plan of care with patient. Patient agrees with plan and verbalizes understanding. Result Diagrams: 10/05/19 10:07 10/05/19 10:07 - EKG 1 Time of EKG reading by physician:: 10:15 EKG Read and Signed by:: Balwinder Moyer EKG Interpretation (*Must complete 3 of following elements*): Abnormal Rate: 96 Rhythm: NSR [place]: normal Comments: abnormal QRS-T angle consider primary T wave abnormality - XRAY 1 XRAY Study: Chest, Abdomen ([facility] - [address] [facility], [address] [address] [place] [id number] [facility] - [address] [place] [address] Department of Imaging Patient: MARGY MAR Date: 10/05/19MR#: [id number] : 1950DM Status: REG [facility]#: [id number] Age/Sex: 69/FRoom/Bed: Loc: P.ED Ordering Physician: Lamine Roberson Family Physician: Cindi Kiran Reason for Procedure: fever, diarrhea Signed EXAM: FLAT/UPRIGHT ABD/1 VIEW CHEST - 10/05/2019 HISTORY: fever, diarrhea TECHNIQUE: Supine and upright abdomen and one view chest COMPARISON: 10/01/2019 chest two views FINDINGS: The bowel gas pattern appears nonspecific. There is some small bowel gas visible at the left lower quadrant, but there is no substantial gaseous small bowel distention identified. There is gas visible in nondistended colon. There is no free air identified. There are surgical clips at the right upper quadrant. Upright chest shows normal heart size. There is mild tortuosity of the thoracic aorta similar to prior. There is slight left lower lung linear scarring. The lungs otherwise appear clear. There is no pleural effusion or pneumothorax identified. IMPRESSION: Nonspecific bowel gas pattern. No evidence of acute pulmonary disease. Electronically signed by Clinton Dunham 10/05/2019 10:41 AM 10/05/19 1041 Interpreting Physician: Clinton Dunham MD Dictated Date/Time: 10/05/19 1039 cc: Lamine Roberson; Cindi Kiran) XRAY Interpretation: See note <Lamine Roberson - Last Filed: 10/05/19 13:29> - PLAN OF CARE/RESULTS Progress/Plan/Lab Results: Vital Signs - 8 hr 10/05/19 09:30 10/05/19 10:52 10/05/19 11:33 Temperature 98.7 F Pulse Rate 104 H 88 101 H Respiratory Rate 20 22 17 Blood Pressure 141/112 141/91 132/90 O2 Sat by Pulse Oximetry 100 99 100 10/05/19 13:28 Temperature 98.1 F Pulse Rate 94 H Respiratory Rate 16 Blood Pressure 149/87 O2 Sat by Pulse Oximetry 100 Laboratory Results - last 24 hr 10/05/19 10/05/19 10/05/19 09:43 09:43 10:07 WBC RBC Hgb Hct MCV MCH MCHC RDW Std Deviation Plt Count MPV Immature Gran % (Auto) Neut % (Auto) Lymph % (Auto) Travis % (Auto) Eos % (Auto) Baso % (Auto) Immature Gran # (Auto) Neut # (Auto) Lymph # (Auto) Travis # (Auto) Eos # (Auto) Baso # (Auto) Sodium Potassium Chloride Carbon Dioxide Anion Gap BUN Creatinine Estimated GFR/1.73 m2 BUN/Creatinine Ratio Glucose Calculated Osmolality Calcium Total Bilirubin AST ALT Alkaline Phosphatase Creatine Kinase Creatine Kinase Index CK-MB (CK-2) Troponin T High Sens Eut-D-Mdmltfdsgvx Pept 65 Total Protein Albumin Globulin Albumin/Globulin Ratio Lipase TSH Urine Source Urine Color Urine Turbidity Urine pH Ur Specific [place] Urine Protein Ur Glucose (Stick) Ur Ketones (Stick) Urine Blood Urine Nitrite Urine Bilirubin Urobilinogen Dipstick Urine Leukocytes Urine WBC (Auto) Urine RBC (Auto) U Epithel Cells (Auto) Urine Bacteria (Auto) Acetone Level Influenza A (Rapid) NEGATIVE Influenza B (Rapid) NEGATIVE Group A Strep Rapid NEGATIVE 10/05/19 10/05/19 10/05/19 10:07 10:07 10:07 WBC RBC Hgb Hct MCV MCH MCHC RDW Std Deviation Plt Count MPV Immature Gran % (Auto) Neut % (Auto) Lymph % (Auto) Travis % (Auto) Eos % (Auto) Baso % (Auto) Immature Gran # (Auto) Neut # (Auto) Lymph # (Auto) Travis # (Auto) Eos # (Auto) Baso # (Auto) Sodium 141 Potassium 3.8 Chloride 98 Carbon Dioxide 24 L Anion Gap 19 BUN 22 Creatinine 0.9 Estimated GFR/1.73 m2 > 60 BUN/Creatinine Ratio 24 Glucose 307 H Calculated Osmolality 296 Calcium 10.8 H Total Bilirubin 0.60 AST 31 H ALT 32 Alkaline Phosphatase 123 H Creatine Kinase 343 H Creatine Kinase Index 1.4 CK-MB (CK-2) 4.91 Troponin T High Sens 13 Ivb-T-Yhepwvqzrqr Pept Total Protein 8.0 Albumin 4.6 Globulin 3.0 Albumin/Globulin Ratio 1.0 Lipase TSH 0.88 Urine Source Urine Color Urine Turbidity Urine pH Ur Specific [place] Urine Protein Ur Glucose (Stick) Ur Ketones (Stick) Urine Blood Urine Nitrite Urine Bilirubin Urobilinogen Dipstick Urine Leukocytes Urine WBC (Auto) Urine RBC (Auto) U Epithel Cells (Auto) Urine Bacteria (Auto) Acetone Level Influenza A (Rapid) Influenza B (Rapid) Group A Strep Rapid 10/05/19 10/05/19 10/05/19 10:07 10:07 10:12 WBC 12.73 H RBC 5.31 Hgb 15.1 Hct 46.1 MCV 86.8 MCH 28.4 MCHC 32.8 L RDW Std Deviation 13.5 Plt Count 299 MPV 9.1 Immature Gran % (Auto) 0.2 Neut % (Auto) 63.9 Lymph % (Auto) 26.6 Travis % (Auto) 7.4 Eos % (Auto) 1.4 Baso % (Auto) 0.5 Immature Gran # (Auto) 0.03 Neut # (Auto) 8.13 H Lymph # (Auto) 3.38 Travis # (Auto) 0.94 H Eos # (Auto) 0.18 Baso # (Auto) 0.07 Sodium Potassium Chloride Carbon Dioxide Anion Gap BUN Creatinine Estimated GFR/1.73 m2 BUN/Creatinine Ratio Glucose Calculated Osmolality Calcium Total Bilirubin AST ALT Alkaline Phosphatase Creatine Kinase Creatine Kinase Index CK-MB (CK-2) Troponin T High Sens Wuf-U-Qskdipamasr Pept Total Protein Albumin Globulin Albumin/Globulin Ratio Lipase 38 TSH Urine Source Urine Color Urine Turbidity Urine pH Ur Specific [place] Urine Protein Ur Glucose (Stick) Ur Ketones (Stick) Urine Blood Urine Nitrite Urine Bilirubin Urobilinogen Dipstick Urine Leukocytes Urine WBC (Auto) Urine RBC (Auto) U Epithel Cells (Auto) Urine Bacteria (Auto) Acetone Level NEGATIVE Influenza A (Rapid) Influenza B (Rapid) Group A Strep Rapid 10/05/19 11:45 WBC RBC Hgb Hct MCV MCH MCHC RDW Std Deviation Plt Count MPV Immature Gran % (Auto) Neut % (Auto) Lymph % (Auto) Travis % (Auto) Eos % (Auto) Baso % (Auto) Immature Gran # (Auto) Neut # (Auto) Lymph # (Auto) Travis # (Auto) Eos # (Auto) Baso # (Auto) Sodium Potassium Chloride Carbon Dioxide Anion Gap BUN Creatinine Estimated GFR/1.73 m2 BUN/Creatinine Ratio Glucose Calculated Osmolality Calcium Total Bilirubin AST ALT Alkaline Phosphatase Creatine Kinase Creatine Kinase Index CK-MB (CK-2) Troponin T High Sens Gjv-Z-Nyprxxtxddj Pept Total Protein Albumin Globulin Albumin/Globulin Ratio Lipase TSH Urine Source CLEAN CATCH Urine Color YELLOW Urine Turbidity CLEAR Urine pH 6.5 Ur Specific [place] 1.020 Urine Protein TRACE A Ur Glucose (Stick) 100 A Ur Ketones (Stick) NEGATIVE Urine Blood NEGATIVE Urine Nitrite NEGATIVE Urine Bilirubin NEGATIVE Urobilinogen Dipstick NORMAL Urine Leukocytes TRACE A Urine WBC (Auto) <10 Urine RBC (Auto) <10 U Epithel Cells (Auto) <10 Urine Bacteria (Auto) NEGATIVE Acetone Level Influenza A (Rapid) Influenza B (Rapid) Group A Strep Rapid Orders Category Date Time Status FSBS [Finger Stick Blood Sugar (ED)] DIRECTED Care 10/05/19 12:12 Active Saline Loc NOW Care 10/05/19 09:54 Active FLAT/UPRIGHT ABD/1 VIEW CHEST [RAD] Stat Exams 10/05/19 09:55 Completed ACETONE SERUM [CHEM] Stat Lab 10/05/19 10:07 Completed CBC WITH ELECTRONIC DIFF [HEME] Stat Lab 10/05/19 10:07 Completed CK PROFILE [SP CHEM] Stat Lab 10/05/19 10:07 Completed COMPREHENSIVE METABOLIC PANEL [CHEM] Stat Lab 10/05/19 10:[address] Stat Lab 10/05/19 09:[address] Stat Lab 10/05/19 09:43 Completed LIPASE [CHEM] Stat Lab 10/05/19 10:12 Completed PRO B-NATRIURETIC PEPTIDE Stat Lab 10/05/19 10:07 Completed TROPONIN T HIGH SENSITIVITY Stat Lab 10/05/19 10:07 Completed TSH Stat Lab 10/05/19 10:07 Completed URINALYSIS W/POSS RFLX CULT [URINALYSIS] Stat Lab 10/05/19 11:45 Completed 0.9% Sodium Chloride Inj [Ns] 1,000 ml Med 10/05/19 10:02 Discontinued IV 999 mls/hr Ondansetron [Zofran] Med 10/05/19 10:57 Discontinued 4 mg IV NOW ONE EKG [EKG] Stat Ther 10/05/19 09:54 Draft Result Diagrams: 10/05/19 10:07 10/05/19 10:07 - REASSESSMENT Reassessment #1 Time Reassessed: 13:20 Status: unchanged (i ALSO INTERVIEWED AND EXAMINED THE PATIENT AND REVIEWED ALL LAB AND X-RAYS. PT STATES SHE IS TOO WEAK TO WALK FROM HER BED TO TOILET W/O FALLING. NOT HR 108 AFTER 1 LITER IVF. MILD LEUKOCYTOSIS. HYPERGLYCEMIA W.O ACETONE ELEV. LFTs UP) - CONSULTS/PCP/HOSPITALIST Notification #1 *Consult/PCP/Hospitalist*: DR TOPETE Time Discussed: 13:20 <Balwinder Moyer - Last Filed: 10/05/19 13:39> Departure - Departure Date of Disposition Decision: 10/05/19 Time of Disposition Decision: 12:17 Certified Medical Emergency: Emergent - Critical Care Note This patient required my direct & personal management of CC.: No <Lamine Roberson - Last Filed: 10/05/19 13:29> - Departure Certified Medical Emergency: Emergent - Critical Care Note This patient required my direct & personal management of CC.: No <Balwinder Moyer - Last Filed: 10/05/19 13:39> - Departure DIAGNOSIS: Hyperglycemia, Viral syndrome, Anxiousness, Weakness, Gait disturbance Leukocytosis Qualifiers: Leukocytosis type: unspecified Qualified Code(s): D72.829 - Elevated white blood cell count, unspecified Disposition: ADMITTED INPATIENT 09 Condition: Fair Additional Instructions: ED Follow Up Instructions: You have been treated by a care provider in the Emergency Department. These instructions are being provided to you so you can have an understanding of how to care for yourself upon discharge. Upon discharge from the Emergency Department, you are responsible for making arrangements for follow-up care by a physician of your choice. Take all prescribed medications as directed. Return to the Emergency Department immediately for any new or worsening symptoms. You may call the Physician Referral phone number at [phone] to obtain a list of Physicians who are taking new patients. Referrals and Follow-Ups: Cindi Kiran CRNP [Primary Care Provider] - Discharge Education: Hyperglycemia, Tokk-hd-Tldu, Viral Illness, Adult Attestation - Physician/ TANK Attestation Patient care was provided by Advanced Practice Provider:: Yes Advanced Practice Provider:: Lamine Roberson Advanced Practice Provider documentation review:: The Mid-level provider documentation, treatment plan and medical decision making was reviewed by the physician who agrees with all treatment and medical decision making by the MLP. The physician spent face to face time with patient:: No Advanced Practice Provider documentation review:: Supervising physician onsite and consulted in the evaluation and care of this patient. The physician did not have a face to face encounter with the patient. <Lamine Roberson - Last Filed: 10/05/19 13:29> - Physician/ TANK Attestation The physician spent face to face time with patient:: Yes (I BALWINDER MOYER MD ALSO SAW THIS PT.) Advanced Practice Provider documentation review:: Supervising physician onsite and consulted in the evaluation and care of this patient. The physician did have a face to face encounter with the patient. <Balwinder Moyer - Last Filed: 10/05/19 13:39> This chart was documented by the indicated scribe, (Adriana Fields, Greysonibe) and accurately reflects the services I performed and decisions made by me, Lamine Roberson CRNP, as attested by the provider's signature.
[2019-10-05 10:16] LABS: BASO# 0.07 X1000 (0.0-0.2); BASO% 0.5 % (0.0-0.8); EOS# 0.18 X1000 (0.0-0.7); EOS% 1.4 % (0.0-10.0); HEMATOCRIT 46.1 % (37.0-47.0); HEMOGLOBIN 15.1 g/dL (12.0-16.0); IMM GRAN# 0.03 X1000 (0.0-0.04); IMM GRAN% 0.2 % (0.0-0.5); LYMPH# 3.38 X1000 (1.2-3.4); LYMPH% 26.6 % (20.5-51.1); MCH 28.4 PG (27-31); MCHC 32.8 g/dL (33-37); MCV 86.8 FL (81-99); MONO# 0.94 X1000 (0.11-0.59); MONO% 7.4 % (1.7-9.3); MPV 9.1 FL (7.4-10.4); NEUT# 8.13 X1000 (1.4-6.5); NEUT% 63.9 % (42.2-75.2); PLT 299 X1000 (130-400); RBC 5.31 XMIL (4.2-5.4); RDW 13.5 % (11.5-14.5); WBC 12.73 X1000 (4.8-10.8)
--- NOTE | 2019-10-05 10:27 | EKG Report ---
Test Performed on : 10/05/2019 10:13:03 AM Test Reason : Weakness Blood Pressure : / mmHG Vent. Rate : 096 BPM Atrial Rate : 096 BPM P-R Int : 136 ms QRS Dur : 086 ms QT Int : 368 ms P-R-T Axes : 053 -12 120 degrees QTc Int : 464 ms Normal sinus rhythm. Abnormal QRS-T angle, consider primary T wave abnormality Abnormal ECG When compared with ECG of 16-OCT-2018 05:23, Criteria for Septal infarct are no longer present Unconfirmed Result
[2019-10-05 10:33] LABS: AGAP 19; ALBUMIN 4.6 g/dL (3.5-5.0); ALKALINE PHOSPHATASE 123 U/L (32-104); BUN 22 mg/dL (8-22); CALCIUM 10.8 mg/dL (8.8-10.2); CHLORIDE 98 mmol/L (98-107); COSMO 296; CREATININE 0.9 mg/dL (0.5-0.9); ESTIMATED GFR > 60; GLUCOSE 307 mg/dL (70-104); GOT 31 U/L (10-30); GPT 32 U/L (10-36); POTASSIUM 3.8 mmol/L (3.5-5.1); SODIUM 141 mmol/L (136-145); TCO2 24 mmol/L (25-35)
[2019-10-05 10:38] LABS: CK PROFILE 343 U/L (24-173)
--- NOTE | 2019-10-05 10:43 | Diag Imaging Result Doc PS360 ---
EXAM: FLAT/UPRIGHT ABD/1 VIEW CHEST - 10/05/2019 HISTORY: fever, diarrhea TECHNIQUE: Supine and upright abdomen and one view chest COMPARISON: 10/01/2019 chest two views FINDINGS: The bowel gas pattern appears nonspecific. There is some small bowel gas visible at the left lower quadrant, but there is no substantial gaseous small bowel distention identified. There is gas visible in nondistended colon. There is no free air identified. There are surgical clips at the right upper quadrant. Upright chest shows normal heart size. There is mild tortuosity of the thoracic aorta similar to prior. There is slight left lower lung linear scarring. The lungs otherwise appear clear. There is no pleural effusion or pneumothorax identified. IMPRESSION: Nonspecific bowel gas pattern. No evidence of acute pulmonary disease. Electronically signed by Clinton Dunham 10/05/2019 10:41 AM
[2019-10-05 10:52] LABS: CK INDEX 1.4 (0.0-2.5); CK-MB 4.91 ng/mL (0.0-5.0)
[2019-10-05] MEDS ORDERED: ZOFRAN IV ONE (10:57)
[2019-10-05 11:52] LABS: URINE SOURCE CLEAN CATCH
[2019-10-05 12:09] LABS: BILIRUBIN URINE NEGATIVE (NEGATIVE); BLOOD URINE NEGATIVE (NEGATIVE); COLOR YELLOW; GLUCOSE URINE 100 mg/dL (NEGATIVE); KETONE URINE NEGATIVE (NEGATIVE); LEUKOCYTES URINE TRACE (NEGATIVE); NITRITE URINE NEGATIVE (NEGATIVE); PH URINE 6.5; PROTEIN URINE TRACE mg/dL (NEGATIVE); TURBIDITY URINE CLEAR (CLEAR); UROBILINOGEN URINE NORMAL (NORMAL)
[2019-10-05 12:11] LABS: UR EPITHELIAL CELLS <10 /HPF (<10); URINE BACTERIA NEGATIVE /HPF; URINE RBC <10 /HPF (<10); URINE WBC <10 /HPF (<10)
--- NOTE | 2019-10-05 15:31 | HISTORY AND PHYSICAL ---
PRIMARY CARE PHYSICIAN: BESSIE Iqbal. CHIEF COMPLAINT: Chills and body aches with some mild nausea and vomiting since Sunday that progressively worsened. HISTORY OF PRESENTING ILLNESS: This is a 69-year-old, female who presented to [facility] ER with complaints of body aches, chills, some nausea, and mild vomiting that began Sunday. She went to see her primary care physician on Sunday, who gave her some antibiotics but she was unable to take them due to being unable to hold anything down. Her workup here in the emergency room showed a white blood cell count of 12.73. Her glucose was 307. Creatine kinase of 343 with a CK-MB of 4.91. Troponin T high-sensitivity was 13. Lipase was 38. TSH 0.88. Urinalysis was negative. Acetone was negative. Influenza A and B and group A strep were all negative. We did an abdomen x-ray that showed a nonspecific bowel gas pattern and no evidence of acute pulmonary disease but we are going to place her in the hospital under observation for further evaluation and treatment. PAST MEDICAL HISTORY: Hypertension, hyperlipidemia, GERD, TIA, diabetes type 2, non-Hodgkin's lymphoma. PAST SURGICAL HISTORY: An appendectomy, section, and bilateral tubal ligation. FAMILY HISTORY: Reviewed and noncontributory. SOCIAL HISTORY: She currently lives with her daughter. Denies any tobacco, alcohol, or illicit drug use. ALLERGIES: Codeine and penicillin. HOME MEDICATIONS: A current list will need to be obtained, reconciled, reviewed, and restarted as appropriate. We will place an order for nursing to update and confirm home medications. LABORATORY DATA: Showed a white blood cell count of 12.73, hemoglobin 15.1, hematocrit 46.1, platelets 299,000. Sodium 141, potassium 3.8, chloride 98, CO2 of 24, BUN of 22, creatinine 0.9, glucose 307. Creatine kinase of 343, CK-MB of 4.91, troponin T high-sensitivity of 13. Lipase 38. TSH 0.88. Urinalysis was negative. Acetone level was negative. Influenza A and B were negative. Group A strep was negative. Abdomen x-ray showed a nonspecific bowel gas pattern with no evidence of acute pulmonary disease. REVIEW OF SYSTEMS: She denied any fever. She has had chills, body aches, nausea, vomiting. Denied any cough, diarrhea, chest pain, abdominal pain, burning or hurting with urination. PHYSICAL EXAMINATION: VITAL SIGNS: On arrival showed a temperature of 98.7 degrees, pulse 104, respirations 20, blood pressure 141/112, saturating 100% on room air. Blood pressure now down to 149/87. HEENT: Normocephalic, atraumatic. Normal ENT inspection. Oropharynx and nares are clear. Eyes: Pupils are equal, round, and reactive to light and accommodation. Extraocular movements are intact. NECK: Normal inspection. Normal range of motion. LUNGS: Clear to auscultation bilaterally with equal lung expansion and chest wall movement. HEART: Regular rate and rhythm. No murmurs, rubs, or gallops. ABDOMEN: Soft, nontender, nondistended. Bowel sounds were present x4 quadrants. MUSCULOSKELETAL: She had 4/5 strength x4 extremities. NEUROLOGICAL: The cranial nerves 2-12 appear grossly intact. ASSESSMENT: 1. Generalized weakness. 2. Leukocytosis, mild. 3. Mild rhabdomyolysis. 4. Diabetes type 2 with hyperglycemia. PLAN: She will be admitted to the medical unit under observation status, placed on telemetry, clear liquid diet, normal saline at 125 mL an hour, Lovenox 40 mg subcutaneously q.24 for DVT prophylaxis, pattern of blood sugars with sliding scale insulin, Zofran 4 mg IV q.4 hours p.r.n. We need to update and confirm home medications, and recheck a CBC and BMP in the a.m. Dictated by BESSIE Zimmerman for Anurag Scott MD cc: BESSIE Zimmerman MD Amanda K. Anderson, CRNP
[2019-10-05] MEDS ORDERED: TYLENOL PO PRN (15:38)
[2019-10-05] MEDS: LOVENOX SUBQ SCH (17:58)
[2019-10-05] MEDS: NS 1,000 ML IV SCH ×2 (17:58→23:38)
[2019-10-05] MEDS: HUMALOG (PARKWAY) SUBQ SCH ×2 (17:59→21:37)
--- NOTE | 2019-10-05 18:33 | HISTORY AND PHYSICAL ---
ADDENDUM: Patient seen and examined by myself. Full note dictated and discussed with nurse practitioner. Patient presented to the hospital with body aches and chills. States she has had vomiting. She has had affectively nothing to eat for the past 7 days except for 16 crackers. Does have a history of diabetes and peripheral neuropathy. We are going to admit her to the hospital IV fluids. Follow her blood sugars, blood pressures and will follow. cc: Anurag Scott MD
[2019-10-05] MEDS: AMBIEN PO PRN (21:54)
[2019-10-06 06:45] LABS: AGAP 12; BUN 17 mg/dL (8-22); CALCIUM 8.3 mg/dL (8.8-10.2); CHLORIDE 104 mmol/L (98-107); COSMO 287; CREATININE 0.9 mg/dL (0.5-0.9); ESTIMATED GFR > 60; GLUCOSE 208 mg/dL (70-104); POTASSIUM 3.3 mmol/L (3.5-5.1); SODIUM 140 mmol/L (136-145); TCO2 24 mmol/L (25-35)
[2019-10-06 06:50] LABS: BASO# 0.06 X1000 (0.0-0.2); BASO% 0.6 % (0.0-0.8); EOS# 0.24 X1000 (0.0-0.7); EOS% 2.2 % (0.0-10.0); HEMATOCRIT 36.8 % (37.0-47.0); HEMOGLOBIN 11.7 g/dL (12.0-16.0); IMM GRAN# 0.03 X1000 (0.0-0.04); IMM GRAN% 0.3 % (0.0-0.5); LYMPH# 3.49 X1000 (1.2-3.4); LYMPH% 32.4 % (20.5-51.1); MCH 28.5 PG (27-31); MCHC 31.8 g/dL (33-37); MCV 89.5 FL (81-99); MONO# 0.86 X1000 (0.11-0.59); MPV 9.3 FL (7.4-10.4); NEUT# 6.09 X1000 (1.4-6.5); NEUT% 56.5 % (42.2-75.2); PLT 219 X1000 (130-400); RBC 4.11 XMIL (4.2-5.4); RDW 13.4 % (11.5-14.5); WBC 10.77 X1000 (4.8-10.8)
[2019-10-06] MEDS: HUMALOG (PARKWAY) SUBQ SCH ×4 (06:51→21:53)
[2019-10-06] MEDS: ZOFRAN IV PRN ×2 (10:14→22:01)
[2019-10-06] MEDS: NS 1,000 ML IV SCH ×3 (11:01→22:00)
--- NOTE | 2019-10-06 11:19 | PROGRESS NOTE ---
DATE: 10/06/2019 SUBJECTIVE: The patient reports still feeling nauseated. Abdominal pain is definitely getting better, but nausea is still there despite medication that she is receiving for that condition. OBJECTIVE: Vital Signs: Temperature 98.1 degrees, heart rate 77, respiratory rate 18, blood pressure 136/66, O2 saturation 100% on room air. General: This is a 69-year-old, female, lying in bed in no acute distress. Cardiovascular: S1, S2 heard. No murmurs, gallops, or rubs. Regular rate and rhythm. Respiratory: Clear bilaterally to auscultation. No work of breathing or using accessory muscles. Abdomen: Soft, nontender to palpation. Bowel sounds present. No organomegaly. Extremities: No clubbing, cyanosis, or edema. Peripheral pulses present in both legs. Neurologic: The patient is alert and oriented x3. Moves all 4 extremities. LABORATORY DATA: WBC 10.77, hemoglobin 11.7, hematocrit 36.8. Potassium 3.3, calcium 8.3. ASSESSMENT AND PLAN: 1. Recurrent nausea and vomiting. Because of this condition, we are going to order CT of abdomen and pelvis with and without contrast and see what it shows. The patient is not complaining of any abdominal pain, but is still nauseated, so will continue with Zofran and Phenergan intravenously. 2. Diabetes mellitus type 2. Will continue with sliding scale insulin and Accu-Cheks before meals and also at bedtime. 3. Mild rhabdomyolysis. The CK checked yesterday was 343. I do not think we need to repeat it. Will continue with intravenous fluids and will go from there. cc: Julius Steen MD
[2019-10-06] MEDS: BENTYL PO SCH ×3 (11:48→20:16)
--- NOTE | 2019-10-06 12:03 | Diag Imaging Result Doc PS360 ---
US ABDOMEN-COMPLETE - 10/06/2019 INDICATION: persistent nausea vomiting TECHNIQUE: Yusuf scale, color Doppler, and duplex evaluation of the abdomen was performed. Standard protocol. COMPARISON: None FINDINGS: The liver appears unremarkable. No focal masses are appreciated. The visualized portions of the IVC and aorta appear normal. The pancreas is unremarkable although the tail is obscured by bowel gas artifact. Status post cholecystectomy The common bile duct measures 6 mm. The portal vein is patent with hepatopetal flow. Spleen is unremarkable. The kidneys appear normal bilaterally. There is no hydronephrosis. IMPRESSION: Status post cholecystectomy. No acute findings. Electronically signed by Adwoa Gay 10/06/2019 12:01 PM
--- NOTE | 2019-10-06 12:33 | Diag Imaging Result Doc PS360 ---
EXAM: CT ABDOMEN/PELVIS W/WO CONTRAS HISTORY: persistent nausea vomiting TECHNIQUE: This exam was performed using automated exposure control, adjustment of mA or kV according to patient size, and/or use of iterative reconstruction technique. COMPARISON: None. FINDINGS: Lung bases: Unremarkable. Hepatobiliary: Normal liver attenuation. No intrahepatic or extrahepatic biliary ductal dilatation is identified. There are cholecystectomy clips.. No suspicious masses are appreciated. Pancreas/Adrenal glands/Spleen: Normal size and enhancement. No cysts or solid masses are appreciated. Kidneys: There is a 3.7 mm calcification left kidney. 14 mm simple cortical cyst left kidney. No hydronephrosis is appreciated. Normal bilateral enhancement. No suspicious masses. Retroperitoneum: Normal caliber aorta. No lymphadenopathy. Moderate calcific atherosclerotic disease. There is no free fluid, free air, bowel distention, or abscess identified. Bowel/Mesentery: Normal caliber small and large bowel loops. No evidence for obstruction. . No mesenteric lymphadenopathy is appreciated. There is a small fat-containing ventral hernia. Appendix: Status post appendectomy. Pelvis: Reproductive organs show no acute abnormality. Urinary bladder is unremarkable. There is a lucent, striated appearance the T8 vertebral body which statistically represents a hemangioma. IMPRESSION: 1.No evidence for obstruction. 2.Small fat-containing ventral hernia. 3.Left nephrolithiasis. No hydronephrosis. Electronically signed by Adwoa Gay 10/06/2019 12:31 PM
[2019-10-06] MEDS: LOVENOX SUBQ SCH (17:11)
[2019-10-06] MEDS: LOPRESSOR PO SCH (20:15)
[2019-10-06] MEDS: AMBIEN PO PRN (20:22)
[2019-10-06] MEDS ORDERED: DESYREL PO SCH (21:00)
[2019-10-07] MEDS: HUMALOG (PARKWAY) SUBQ SCH ×3 (07:19→16:43)
[2019-10-07] MEDS: LOPRESSOR PO SCH (08:24)
[2019-10-07] MEDS: BENTYL PO SCH ×3 (08:24→16:43)
[2019-10-07] MEDS ORDERED: PRINIVIL PO SCH (09:00)
[2019-10-07 16:18] VITALS: BP 134/94
[2019-10-07] MEDS: LOVENOX SUBQ SCH (16:42)
[2019-10-07] MEDS: NS 1,000 ML IV SCH (16:42)
--- NOTE | 2019-10-08 09:36 | DISCHARGE SUMMARY ---
ADMISSION DATE: 10/05/2019 DISCHARGE DATE: 10/07/2019 DISCHARGE DIAGNOSES: 1. Generalized weakness, improved. 2. Rhabdomyolysis, improved. 3. Hyperkalemia, improved. 4. Diabetes. 5. Nausea and vomiting with decreased oral intake, improved. 6. Hypertension. 7. Hyperlipidemia. 8. Non-Hodgkin's lymphoma. CONSULTATIONS: None. PROCEDURES: None. BRIEF HOSPITAL COURSE: The patient is a 69-year-old female presenting to the hospital with nausea and vomiting. She states she had been vomiting for a couple of days prior to coming in. She was admitted to the hospital with IV fluids, Zofran, and was followed. Thankfully, on discharge, she is awake and alert. She is in no distress. She tolerated a full diet and states she is feeling much better, and desires to go home. DISPOSITION: Patient will be discharged home. No changes were made on her chronic home medications, diet, or activity. She will be instructed to follow up with her primary care in 1 to 2 weeks. Greater than 30 minutes were spent in total care. cc: Anurag Scott MD
== END 2019-10-07 17:12 | disposition home or self-care (01) | DRG 558 ==
LOC: P.MEDSURG 09:15 → P.ED 09:15 → SUATTDRO 14:52
PROVIDERS: ATTEND Family Medicine